=== PATIENT | female | born 1970 | race African-American/Black ===

== ENCOUNTER 2018-07-25 10:12 | Day surgery (SDC) | payer BC ==
[2018-07-18 14:55] VITALS: BMI 35.2
[2018-07-25] MEDS ORDERED: oxyCODONE HCL 5 MG TABLET PO PRN (10:39)
[2018-07-25] MEDS ORDERED: ONDANSETRON 4 MG/2 ML VIAL IVPUSH PRN (10:39)
[2018-07-25] MEDS ORDERED: LACTATED RINGERS SOLUTION 1,000 ML IV SCH (10:45)
[2018-07-25] MEDS ORDERED: EPINEPHrine 1:1,000 1 MG/1 ML - 30ML VIAL (INJECTION) ONE (12:31)
[2018-07-25] MEDS ORDERED: BUPIVACAINE HCL 0.25% 125 MG/50 ML VIAL ONE ×2 (12:31→12:39)
[2018-07-25] MEDS ORDERED: methylPREDNISolone ACET (DEPO) 40 MG/1 ML VIAL ONE (12:31)
[2018-07-25] MEDS ORDERED: MIDAZOLAM HCL 2 MG/2 ML SINGLE DOSE VIAL ONE ×2 (13:32→13:40)
[2018-07-25] MEDS ORDERED: DEXAMETHASONE SOD PHOSPHATE 4 MG/1 ML VIAL ONE (13:44)
[2018-07-25] MEDS ORDERED: LIDOCAINE HCL/PF 2% SDV 5ML VIAL ONE (13:44)
[2018-07-25] MEDS ORDERED: KETOROLAC TROMETHAMINE 30 MG/1 ML VIAL ONE (13:44)
[2018-07-25] MEDS ORDERED: ceFAZolin SODIUM 1 GM VIAL ONE (13:44)
[2018-07-25] MEDS ORDERED: LIDOCAINE HCL 2% JELLY (5 ML/TUBE) ONE (13:44)
[2018-07-25] MEDS ORDERED: ONDANSETRON 4 MG/2 ML VIAL ONE (13:44)
[2018-07-25] MEDS ORDERED: PROPOFOL 20 ML ONE ×2 (13:45)
[2018-07-25] MEDS ORDERED: ePHEDrine SULFATE 50 MG/1 ML AMPULE ONE (14:11)
[2018-07-25] MEDS ORDERED: TRANEXAMIC ACID 1000 MG/10 ML VIAL ONE (15:04)
[2018-07-25] MEDS ORDERED: BUPIVACAINE HCL/PF 0.25% (2.5MG/ML) 10 ML VIAL IJ ONE (15:10)
[2018-07-25] MEDS ORDERED: methylPREDNISolone ACET (DEPO) 40 MG/1 ML VIAL NR ONE (15:10)
--- NOTE | 2018-07-25 15:39 | OP ---
Operative Note - Note: Operative Date: 07/25/18 Pre-Operative Diagnosis: Left knee chondrocalcinosis Operation: 1. Surgical arthroscopy left knee. 2. Partial medial meniscectomy. 3. Chondroplasty medial femoral condyle. 4. 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 Tourniquet Time: 40 minutes. Surgeon: Ramon King Anesthesiologist/SPIRITUAL ADVISOR: Slick Dan Anesthesia: General Estimated Blood Loss (mls): 0 Fluid Volume Replaced (mls): 1,300 (Crystalloid) Operative Report Dictated: Yes
--- NOTE | 2018-07-25 15:40 | PN ---
Progress Note (short form) - Note Progress Note: 47F s/p SUSANK, PMM & C chondroplasty POD #0. -Pain control. -WBAT LLE. -f/u post-op trial of void. -Diet as tolerated. -Keep dressing clean & dry; d/c on Saturday & place waterproof Band-Aids over incision sites. -Cane vs crutches. -f/u [facility] [place] office 08/01/2018; call for appointment; . Ramon King MD (Orthopaedic Surgery).
[2018-07-25] MEDS ORDERED: oxyCODONE HCL 5 MG TABLET ONE (16:33)
[2018-07-25 16:42] VITALS: TEMP 97.5
[2018-07-25 17:33] VITALS: BP 136/95; PULSE 62
[2018-07-26] MEDS ORDERED: ASPIRIN COATED 81 MG TABLET.EC PO SCH (10:00)
[2018-07-26] MEDS ORDERED: ATENOLOL 50 MG TABLET (FP) PO SCH (10:00)
[2018-07-26] MEDS ORDERED: FOLIC ACID 1 MG TABLET (FP) PO SCH (10:00)
[2018-07-26] MEDS ORDERED: PATIENT'S OWN MEDICATION (NON-FORMULARY) (Atenolol [Tenormin -] 100 MG) PO SCH (10:00)
[2018-07-26] MEDS ORDERED: amLODIPine BESYLATE 10 MG TABLET (FP) PO SCH (10:00)
--- NOTE | 2018-07-28 09:17 | OP ---
Date of Operation: 07/25/2018 Pre-Operative Diagnosis: 1. Left knee chondrocalcinosis Post-Operative Diagnosis: Left knee: 1. Chondrocalcinosis 2. Partial tear posterior horn medial meniscus 3. Degenerative tear body lateral meniscus 4. Multiple loose bodies 5. Chondromalacia patella 6. Chondromalacia trochlear sulcus 7. Chondromalacia medial femoral condyle Surgical Procedure: Left knee: 1. Surgical arthroscopy 2. Partial medial meniscectomy 3. Partial lateral meniscectomy 4. Removal/debridement of multiple loose bodies 5. Chondroplasty medial femoral condyle. 6. Intra-articular (large joint) injection with 5cc 0.25% Marcaine and 2cc depomedrol (40mg/mL). Anesthesia: Spinal & sedation. Position: Supine. Incision: Standard anteromedial & anterolateral knee arthroscopy portals. Tourniquet Pressure: 350mmHg. Tourniquet Time: 40 minutes. Estimated Blood Loss: 0cc. Intravenous Fluid: 1.3L crystalloid. Specimens: None. Drains: None. Complications: None. Urine output: None. Bacteriology: None. Transfusions: None. Closure: 3-0 Nylon. 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 The patient was identified in the holding area by her armband. A long discussion was held with the patient regarding the risks, benefits and alternatives of the above-named procedure. Risks include but are not limited to: pain, bleeding, infection, damage to surrounding structures (including nerves, blood vessels, skin, ligaments, tendons and bone), wound complications, need for further surgery, blood clots, myocardial infarction, pulmonary embolism, anaesthesia complications, compartment syndrome, limb loss, limp, loss of function, and . Benefits as mentioned above. Alternatives include no surgery. All questions were answered. The patient and her family understood and agreed to the procedure. Informed consent was obtained, witnessed and verified. The patients correct operative limb the left lower extremity was marked, and the patient was taken to the operating room after being seen by the anesthesia and nursing staff. Procedure: The patient was brought into the operating room, placed on the OR table and secured with a safety strap. Consent and the operative site was again verified with the patient and nursing and anaesthesia staff. Anaesthesia was then administered without complication. 2g IV Ancef were administered. A time out was done led by me, the attending surgeon. The patient was positioned with bony prominences well padded, a tourniquet was placed proximally and set to 350mmHg, and the left thigh was secured in a well- padded leg kraus. The operative limb was prepped in standard sterile fashion using betadine prep & scrub, wiped off with alcohol, and then DuraPrep applied. The operative limb was then free draped. Time out was again done, the limb was exsanguinated using an Esmarch, the tourniquet was inflated, and the case began. Surface anatomy of the knee was drawn, marking the patella, patellar tendon, and medial & lateral joint lines. With the knee flexed to 45 degrees, a standard anterolateral arthroscopy portal was made using an 11 blade. A blunt trocar was then inserted into the knee at the same angle as the incision. The blunt trocar was then slipped into the suprapatellar pouch as the knee was slowly extended. The trocar was removed through its overlying canula, and the arthroscope was inserted in its place. The fluid inflow, which had already been primed, was then attached to the canula along with the outflow suction tubing. The knee was then insufflated with normal saline solution. The suprapatellar pouch was then inspected with no evidence of synovitis. A large loose body was seen. The medial & lateral retro-patellar surfaces revealed Outerbridge Grade 3 chondromalacia. The trochlear groove demonstrated Outerbridge Grade 3 chondromalacia with deep fissures visible. The patellofemoral articulation appeared otherwise congruous. Next, the arthroscope was delivered into the medial gutter of the knee as the knee was slowly flexed. No loose bodies were seen. With gentle valgus force applied to the knee, the arthroscope was slipped into the medial compartment. Wispy fibrillations of cartilage were seen over the medial femoral condyle. Otherwise the cartilage of the medial femoral condyle and medial tibial plateau appeared healthy. The anterior horn and body of the medial meniscus appeared intact, but a tear of the posterior horn was seen. Chondrocalcinosis was evident on the edge of the tear. Next, an 18-gauge spinal needle was used to plan an anteromedial portal. With the correct position and working trajectory verified, the spinal needle was removed, and an 11 blade was utilized to create a standard anteromedial arthroscopy portal. A blunt trocar was then inserted via the anteromedial portal into the medial compartment of the knee under direct arthroscopic visualization via the anterolateral portal. A probe was inserted via the anteromedial portal demonstrating the instability of the meniscus tear in the white-white zone of the posterior horn of the medial meniscus. The meniscal root and capsular attachments were intact, as also determined by the probe. The probe was used to inspect the superior and inferior surfaces of the medial meniscus and no other derangement was identified. A motorized 3.5mm shaver was then inserted via the anteromedial portal and the meniscus tear was gently trimmed back to a stable peripheral rim. A shaving chondroplasty of the medial femoral condyle was also performed. Next, the arthroscope was delivered into the intercondylar notch. The ACL was visualized and appeared degenerative. The probe was used to demonstrate the ACLs stability. The PCL was not visualized. Gentle varus stress was applied to the knee as the arthroscope was delivered into the lateral compartment of the knee. The cartilage of the lateral femoral condyle and lateral tibial plateau appeared healthy. A degenerative tear of the body of the lateral meniscus was seen. Chondrocalcinosis was evident on the edge of the tear. The remainder of the lateral meniscus was visualized and appeared intact. The meniscal root and capsular attachments were intact, as also determined by the probe. A motorized 3.5mm shaver was then inserted via the anteromedial portal and the meniscus tear was gently trimmed back to a stable peripheral rim. The arthroscope was then delivered into the lateral gutter of the knee where no loose bodies were seen. The arthroscope was then returned to the suprapatellar pouch as the knee was gently extended. The multiple loose bodies were seen and debrided using the 3.5mm motorized shaver. The knee was irrigated with 2-3L of normal saline solution. All fluid was suctioned out of the knee. An intra-articular injection consisting of 5mL of 0.25% Marcaine with 2mL of Depo-Medrol (40 mg/mL) was injected into the knee. Hemostasis was assured, and the incisions were closed primarily using 3-0 nylon sutures in figure-8 fashion. Xeroform and a sterile, compressive dressing was applied. The tourniquet was released at a final time of 40 minutes. The sponge and needle counts were correct at the end of the case and I the attending was present and scrubbed throughout the case. The patient was then transferred to the recovery room in stable condition, as per the anesthesiology team, having tolerated the procedure well. Intra-operative photographs were captured using the arthroscope at numerous steps throughout the case. MD SHAY Fajardo/[id number] MTDD
--- NOTE | 2018-07-30 14:27 | PATH ---
Surgical Pathology Report Patient Name: [facility]AE [facility]. Rec. #: [id number] /Age/Gender: 1970 (Age: 47) / F Account: [id number] Location: [facility] AMBULATORY Taken: 07/25/2018 Received: 07/25/2018 Reported: 07/30/2018 Physicians: Chidi King M.D. Specimen(s) Received LEFT KNEE SHAVINGS Clinical History Chondrocalcinosis left knee Final Diagnosis KNEE, LEFT, ARTHROSCOPIC SHAVINGS: FIBROSYNOVIAL TISSUE AND CARTILAGE SHOWING NODULAR DEPOSITS OF CRYSTALLINE CALCIFIC MATERIAL, CONSISTENT WITH CHONDROCALCINOSIS (PSEUDOGOUT). Electronically Signed Ary Vasquez M.D. Gross Description Received in formalin labeled "left knee shavings," is a 1.8 x 1.1 x 0.2 cm aggregate of eddy soft tissue fragments. The formalin is filtered and the specimen is entirely submitted in one cassette. 07/28/201807/28/2018
== END 2018-07-25 17:45 | disposition home or self-care (01) ==
LOC: FASU 10:12
PROVIDERS: ATTEND Orthopaedic Surgery Adult Reconstructive Orthopaedic Surgery
PROC: 0SCD4ZZ Extirpation of Matter from Left Knee Joint, Percutaneous Endoscopic Approach (ICD-10-PCS; 2018-07-25)
PROC: 3E0U3NZ Introduction of Analgesics, Hypnotics, Sedatives into Joints, Percutaneous Approach (ICD-10-PCS; 2018-07-25)
PROC: 0SBD4ZZ Excision of Left Knee Joint, Percutaneous Endoscopic Approach (ICD-10-PCS; principal; 2018-07-25 14:37)
DX: M11.262 Other chondrocalcinosis, left knee (principal); M23.222 Derangement of posterior horn of medial meniscus due to old tear or injury, left knee; M23.262 Derangement of other lateral meniscus due to old tear or injury, left knee; M23.42 Loose body in knee, left knee; M22.42 Chondromalacia patellae, left knee
CPT/HCPCS: 88305-TC; 94760

== ENCOUNTER 2019-06-29 11:09 | Day surgery (SDC) | payer BC, OTHER ==
[2019-06-26 09:48] VITALS: BMI 39.5
[2019-06-29] MEDS ORDERED: PROPOFOL 20 ML ONE ×2 (12:17)
[2019-06-29] MEDS ORDERED: LIDOCAINE HCL/PF 2% SDV 5ML VIAL ONE (12:17)
[2019-06-29 13:32] VITALS: TEMP 97.8
[2019-06-29 15:14] VITALS: BP 118/70; PULSE 68
--- NOTE | 2019-06-30 12:36 | OP ---
DATE OF OPERATION: 06/29/2019 SURGEON: Rajat Arauz MD PLACE OF SERVICE: [address] [place] [address] PREOPERATIVE DIAGNOSIS: Weight regain status post prior bariatric surgery. POSTOPERATIVE DIAGNOSIS: Dilated sleeve seen on upper endoscopy demonstrating a technical failure and reason for weight regain. PROCEDURE: Upper endoscopy, esophagogastroduodenoscopy. SPECIMENS: None. ESTIMATED BLOOD LOSS: None. REASON FOR PROCEDURE: This is a 48-year-old female who presents to the office for weight regain status post prior bariatric surgery. She had a Lap-Band placed in the past, which malfunctioned. She had the band re-placed, which she did not do well with. She then had the band removed and a sleeve done at the same time. All these procedures were done at a different institution by a different surgeon. She presents to the office because she has had persistent weight regain since her prior bariatric surgeries. To further evaluate her stomach and possible dilation of the stomach, an upper endoscopy was scheduled. The risks and benefits of the procedure were explained. These included bleeding, infection, perforation to the esophagus, stomach, intestine, duodenum, injury to the oral cavity, [place], DVT, PE, and some other complications. She understood and signed informed consent. DESCRIPTION OF PROCEDURE: Patient was placed in the left lateral decubitus position. A bite block was placed by the nursing staff, and she underwent MAC for anesthesia. Time-out was performed prior. The endoscope was placed into the patient's mouth and advanced into the oral cavity through esophagus to the GE junction into the prior gastric sleeve. The sleeve was noted to be moderately dilated. The moderate dilation of the sleeve was noted to be a reason for her weight regain status post her prior surgery. This was likely due to the fact that the band was removed and the sleeve was performed at the same time. The stomach was suctioned and the endoscope fully removed. Descriptions off and on the findings were explained with the patient. PLAN: To perform a re-sleeve for persistent dilation and technical failure for prior vertical sleeve gastrectomy. Patient agrees and understands. RAJAT ARAUZ M.D. [id number]
== END 2019-06-29 14:05 | disposition home or self-care (01) ==
LOC: FASU 11:09
PROVIDERS: ATTEND Surgery
PROC: 0DJ08ZZ Inspection of Upper Intestinal Tract, Via Natural or Artificial Opening Endoscopic (ICD-10-PCS; principal; 2019-06-29 13:02)
DX: K95.89 Other complications of other bariatric procedure (principal); R63.5 Abnormal weight gain; Z98.84 Bariatric surgery status